=== PATIENT | male | born 1945 | race African-American/Black ===

== ENCOUNTER 2022-04-18 12:22 | Emergency (ER) | payer MEDICARE, BC ==
[2022-04-18 13:34] LABS: #Basophils 0.1 10x3/uL (0.0-0.2); #Eosinphils 0.1 10x3/uL (0.0-0.5); #Monocytes 1.8 10x3/uL (0.0-1.1); #Neutrophils 10.7 10x3/uL (1.5-8.4); %Basophils 0.3 % (0.0-2.0); %Eosinophils 0.8 % (0.0-6.0); %Lymphocytes 22.5 % (18.0-47.0); %Monocytes 10.2 % (0.0-10.0); %Neutrophils 62.4 % (40.0-75.0); Hemoglobin 10.8 g/dL (13.5-17.5); Mean Corpuscular HGB CONC 33.3 g/dL (32.0-36.0); Mean Corpuscular Hemoglobin 28.6 pg (27.0-33.0); Mean Corpuscular Volume 85.7 fl (81.2-95.1); Mean Platelet Volume 8.9 fl (7.4-10.4); Platelet Count 303 10x3/uL (150-450); Red Blood Cell (RBC) Count 3.78 10x6/uL (4.32-5.72); White Blood Cell (WBC) Count 17.2 10x3/uL (3.5-10.5)
[2022-04-18 13:48] LABS: ALT (SGPT) 24 U/L (8-55); AST (SGOT) 26 U/L (5-34); Albumin 3.4 g/dL (3.4-4.8); Alkaline Phosphatase 93 U/L (40-110); Anion Gap 13 mmol/L (10-20); BUN (Urea Nitrogen) 14 mg/dL (8.4-25.7); Bilirubin, Total 0.5 mg/dL (0.2-1.2); Calc. Creatinine Clearance 0 mL/min (70-130); Calcium 9.3 mg/dL (7.8-10.44); Carbon Dioxide 21 mmol/L (23-31); Chloride 108 mmol/L (98-107); Estimated GFR 64; Glucose 111 mg/dL (83-110); Potassium 3.7 mmol/L (3.5-5.1); Protein, Total 7.4 g/dL (5.8-8.1); Sodium 138 mmol/L (136-145)
== END 2022-04-18 14:29 | disposition home or self-care (01) ==
LOC: CSHERS 12:22
DX: J18.9 Pneumonia, unspecified organism (principal); I10 Essential (primary) hypertension
CPT/HCPCS: 71045; 80053; 84484; 85025; 93005

== ENCOUNTER 2023-11-15 10:37 | Outpatient (CLI) | payer MEDICARE, BC | END 2023-11-15 10:38 | disposition home or self-care (01) | LOC: CSHMRI 10:37 | PROVIDERS: ATTEND Internal Medicine | DX: R22.31 Localized swelling, mass and lump, right upper limb (principal); M62.89 Other specified disorders of muscle ==

== ENCOUNTER 2023-12-03 15:21 | Outpatient (CLI) | payer MEDICARE, BC ==
[~2023-12-03 15:21] MED LIST: Iopamidol 300 61% 100 ML VIAL FS ONE
== END 2023-12-03 15:22 | disposition home or self-care (01) ==
LOC: CSHCT 15:21
PROVIDERS: ATTEND Internal Medicine
DX: C49.9 Malignant neoplasm of connective and soft tissue, unspecified (principal); C90.00 Multiple myeloma not having achieved remission; N28.89 Other specified disorders of kidney and ureter; J90 Pleural effusion, not elsewhere classified; J98.11 Atelectasis; I31.39 Other pericardial effusion (noninflammatory); I51.7 Cardiomegaly; I70.90 Unspecified atherosclerosis
CPT/HCPCS: 71260; 74177

== ENCOUNTER 2023-12-11 09:21 | Outpatient (CLI) | payer MEDICARE, BC ==
[2023-12-11] MEDS ORDERED: Iopamidol 300 61% 100 ML VIAL FS ONE (09:50)
== END 2023-12-11 09:22 | disposition home or self-care (01) ==
LOC: CSHCT 09:21
PROVIDERS: ATTEND Internal Medicine
DX: D49.512 Neoplasm of unspecified behavior of left kidney (principal); K57.32 Diverticulitis of large intestine without perforation or abscess without bleeding; I31.39 Other pericardial effusion (noninflammatory); J90 Pleural effusion, not elsewhere classified
CPT/HCPCS: 74178

== ENCOUNTER 2024-01-26 11:08 | Inpatient (IN) | payer MEDICARE, BC ==
[2024-01-26 12:21] LABS: #Eosinophils 0.12 10x3/uL (0.0-0.5); #Monocytes 0.21 10x3/uL (0.0-1.1); #Neutrophils 2.38 10x3/uL (1.5-8.4); %Eosinophils 2.6 % (0.0-6.0); %Lymphocytes 41.7 % (18.0-47.0); %Monocytes 4.5 % (0.0-10.0); %Neutrophils 50.8 % (40.0-75.0); Mean Corpuscular HGB CONC 33.3 g/dL (32.0-36.0); Mean Corpuscular Hemoglobin 31.6 pg (27.0-33.0); Mean Corpuscular Volume 94.9 fL (81.2-95.1); Mean Platelet Volume 9.3 fL (7.4-10.4); Platelet Count 145 10x3/uL (150-450); RBC Distribution Width 17.1 % (11.5-14.5); Red Blood Cell (RBC) Count 2.53 10x6/uL (4.32-5.72); White Blood Cell (WBC) Count 4.7 10x3/uL (3.5-10.5)
[2024-01-26 12:32] LABS: ALT (SGPT) 12 U/L (8-55); AST (SGOT) 12 U/L (5-34); Albumin 2.2 g/dL (3.4-4.8); Alkaline Phosphatase 75 U/L (40-110); Anion Gap 10 mmol/L (10-20); BUN (Urea Nitrogen) 18 mg/dL (8.4-25.7); Bilirubin, Total 0.4 mg/dL (0.2-1.2); Calc. Creatinine Clearance 0 mL/min (70-130); Calcium 8.7 mg/dL (7.8-10.44); Carbon Dioxide 21 mmol/L (23-31); Chloride 110 mmol/L (98-107); Estimated GFR 46; Globulin 5.7 g/dL (2.4-3.5); Glucose 124 mg/dL (83-110); Magnesium 1.4 mg/dL (1.6-2.6); Potassium 2.7 mmol/L (3.5-5.1); Protein, Total 7.9 g/dL (5.8-8.1); Sodium 138 mmol/L (136-145)
[2024-01-26 12:58] LABS: Lipase Less than 4 U/L (8-78)
[2024-01-26] MEDS ORDERED: Electrolyte Replacement Protocol 1 EACH FS PRN (14:25)
[2024-01-26] MEDS ORDERED: Ondansetron PF 4 MG/2 ML Vial IVP PRN (14:27)
[2024-01-26] MEDS ORDERED: Acetaminophen 325 MG TAB PO PRN (14:27)
[2024-01-26] MEDS ORDERED: Potassium Chloride 20 MEQ TAB ONE (15:13)
[2024-01-26] MEDS ORDERED: Potassium Chloride 20 MEQ (100 mL) BAG ONE ×2 (16:04→16:15)
[2024-01-26] MEDS ORDERED: Ketorolac Tromethamine 30 MG (1 mL) VIAL IVP PRN (17:06)
[2024-01-26] MEDS: Potassium Chloride 40 MEQ in Sodium Chloride 0.9% 250 ML 250 ML IVPB SCH (17:07)
[2024-01-26] MEDS: Magnesium 2 GM/50 ML(in water) 2 GM in Premix 1 BAG IVPB SCH (17:11)
[2024-01-26 17:48] VITALS: BMI 40.3
[2024-01-26] MEDS ORDERED: Carvedilol 25 MG TAB PO SCH (21:00)
[2024-01-26] MEDS: Sodium Chloride 0.9% 1,000 ML IV SCH (21:29)
[2024-01-26] MEDS: fentaNYL 25 mcg Patch TD SCH (21:29)
[2024-01-26] MEDS: Famotidine 20 MG TAB PO SCH (21:31)
[2024-01-26] MEDS: Heparin 5,000 UNITS/ML VIAL SC SCH (21:32)
[2024-01-26] MEDS: Amlodipine 10 MG TAB PO SCH (21:36)
[2024-01-26] MEDS: hydrALAZINE 25 MG TAB PO SCH (21:36)
[2024-01-27 04:14] LABS: #Basophils 0.01 10x3/uL (0.0-0.2); #Eosinophils 0.13 10x3/uL (0.0-0.5); #Monocytes 0.25 10x3/uL (0.0-1.1); #Neutrophils 1.83 10x3/uL (1.5-8.4); %Basophils 0.2 % (0.0-2.0); %Eosinophils 3.2 % (0.0-6.0); %Lymphocytes 45.1 % (18.0-47.0); %Monocytes 6.2 % (0.0-10.0); %Neutrophils 45.1 % (40.0-75.0); Hematocrit 21.1 % (38.8-50.0); Hemoglobin 7.1 g/dL (13.5-17.5); Mean Corpuscular HGB CONC 33.6 g/dL (32.0-36.0); Mean Corpuscular Hemoglobin 32.3 pg (27.0-33.0); Mean Corpuscular Volume 95.9 fL (81.2-95.1); Mean Platelet Volume 9.5 fL (7.4-10.4); Platelet Count 124 10x3/uL (150-450); RBC Distribution Width 17.3 % (11.5-14.5); White Blood Cell (WBC) Count 4.1 10x3/uL (3.5-10.5)
[2024-01-27 04:27] LABS: Anion Gap 8 mmol/L (10-20); BUN (Urea Nitrogen) 16 mg/dL (8.4-25.7); Calc. Creatinine Clearance 85 mL/min (70-130); Calcium 8.4 mg/dL (7.8-10.44); Carbon Dioxide 21 mmol/L (23-31); Chloride 112 mmol/L (98-107); Estimated GFR 62; Glucose 83 mg/dL (83-110); Magnesium 2.2 mg/dL (1.6-2.6); Potassium 2.9 mmol/L (3.5-5.1); Sodium 138 mmol/L (136-145)
[2024-01-27] MEDS: Potassium Chloride 40 MEQ in Sodium Chloride 0.9% 250 ML 250 ML IVPB SCH ×2 (06:11→10:22)
[2024-01-27] MEDS: Ascorbic Acid 500 mg Chewable Tablet PO SCH (08:44)
[2024-01-27] MEDS: Ferrous Sulfate 325 MG TAB PO SCH (08:45)
[2024-01-27] MEDS: Multivitamin w/Zinc Stress 1 TAB PO SCH (08:45)
[2024-01-27] MEDS: Losartan 50 MG TAB PO SCH (08:45)
[2024-01-27] MEDS ORDERED: THALIDOMIDE 50 MG PO SCH (09:00)
[2024-01-27] MEDS ORDERED: Amlodipine 10 MG TAB PO SCH (09:00)
[2024-01-27] MEDS: Potassium Chloride 20 MEQ in Lactated Ringer's 1,000 ML IV SCH (13:32)
[2024-01-27] MEDS: Atorvastatin Calcium 10 MG TAB PO SCH (20:22)
[2024-01-27] MEDS: Famotidine 20 MG TAB PO SCH (20:23)
[2024-01-27] MEDS: HYDROcodone/Acetaminophen 10/325 mg Tablet PO PRN (21:17)
[2024-01-28 03:51] LABS: #Basophils 0.02 10x3/uL (0.0-0.2); #Monocytes 0.23 10x3/uL (0.0-1.1); #Neutrophils 1.87 10x3/uL (1.5-8.4); %Basophils 0.5 % (0.0-2.0); %Eosinophils 2.3 % (0.0-6.0); %Lymphocytes 48.1 % (18.0-47.0); %Monocytes 5.3 % (0.0-10.0); %Neutrophils 43.6 % (40.0-75.0); Hematocrit 21.9 % (38.8-50.0); Hemoglobin 7.5 g/dL (13.5-17.5); Mean Corpuscular HGB CONC 34.2 g/dL (32.0-36.0); Mean Corpuscular Hemoglobin 31.8 pg (27.0-33.0); Mean Corpuscular Volume 92.8 fL (81.2-95.1); Mean Platelet Volume 8.9 fL (7.4-10.4); Platelet Count 128 10x3/uL (150-450); Red Blood Cell (RBC) Count 2.36 10x6/uL (4.32-5.72); White Blood Cell (WBC) Count 4.3 10x3/uL (3.5-10.5)
[2024-01-28 04:00] LABS: Anion Gap 7 mmol/L (10-20); BUN (Urea Nitrogen) 12 mg/dL (8.4-25.7); Calc. Creatinine Clearance 106 mL/min (70-130); Calcium 7.9 mg/dL (7.8-10.44); Carbon Dioxide 20 mmol/L (23-31); Chloride 114 mmol/L (98-107); Estimated GFR 81; Glucose 81 mg/dL (83-110); Potassium 3.2 mmol/L (3.5-5.1); Sodium 138 mmol/L (136-145)
[2024-01-28] MEDS: Potassium Chloride 20 MEQ TAB PO SCH ×2 (06:16→08:03)
[2024-01-28] MEDS: Famotidine 20 MG TAB PO SCH (08:03)
[2024-01-28] MEDS: Carvedilol 6.25 MG TAB PO SCH (08:05)
[2024-01-28] MEDS: Enoxaparin 40 MG (0.4 mL) SYRINGE SC SCH (08:57)
[2024-01-28] MEDS: Loperamide HCl 2 MG CAP PO PRN (12:06)
[2024-01-28 12:26] LABS: Potassium 3.7 mmol/L (3.5-5.1)
[2024-01-28] MEDS: hydrALAZINE 20 MG/ML VIAL SLOW IVP PRN (16:41)
[2024-01-29 04:13] LABS: #Basophils 0.01 10x3/uL (0.0-0.2); #Eosinophils 0.12 10x3/uL (0.0-0.5); #Monocytes 0.26 10x3/uL (0.0-1.1); #Neutrophils 2.11 10x3/uL (1.5-8.4); %Basophils 0.2 % (0.0-2.0); %Eosinophils 2.7 % (0.0-6.0); %Lymphocytes 44.3 % (18.0-47.0); %Monocytes 5.8 % (0.0-10.0); %Neutrophils 46.8 % (40.0-75.0); Hematocrit 22.2 % (38.8-50.0); Hemoglobin 7.5 g/dL (13.5-17.5); Mean Corpuscular HGB CONC 33.8 g/dL (32.0-36.0); Mean Corpuscular Hemoglobin 31.5 pg (27.0-33.0); Mean Corpuscular Volume 93.3 fL (81.2-95.1); Mean Platelet Volume 8.9 fL (7.4-10.4); Platelet Count 129 10x3/uL (150-450); RBC Distribution Width 17.9 % (11.5-14.5); Red Blood Cell (RBC) Count 2.38 10x6/uL (4.32-5.72); White Blood Cell (WBC) Count 4.8 10x3/uL (3.5-10.5)
[2024-01-29 04:22] LABS: Anion Gap 8 mmol/L (10-20); BUN (Urea Nitrogen) 10 mg/dL (8.4-25.7); Calc. Creatinine Clearance 111 mL/min (70-130); Carbon Dioxide 19 mmol/L (23-31); Chloride 115 mmol/L (98-107); Estimated GFR 85; Glucose 80 mg/dL (83-110); Magnesium 1.4 mg/dL (1.6-2.6); Potassium 3.3 mmol/L (3.5-5.1); Sodium 139 mmol/L (136-145)
[2024-01-29] MEDS: hydrALAZINE 25 MG TAB PO SCH (08:00)
[2024-01-29] MEDS: Magnesium 2 GM/50 ML(in water) 2 GM in Premix 1 BAG IVPB SCH ×2 (08:07→11:41)
[2024-01-29] MEDS: Magnesium 2 GM/50 ML BAG (IN WATER) ONE ×2 (09:14→12:01)
[2024-01-29] MEDS: Potassium Chloride 20 MEQ TAB PO SCH ×2 (09:16→10:48)
[2024-01-29] MEDS ORDERED: niCARdipine 25 MG in Sodium Chloride 0.9% 250 ML 250 ML IVPB SCH ×2 (10:45→11:45)
[2024-01-29 17:56] VITALS: BP 147/67; TEMP 97.8
[2024-01-31 07:10] LABS: Adenovirus F 40-41 Not Detected (Not Detected); Astrovirus Not Detected (Not Detected); C. difficile toxin A+B Not Detected (Not Detected); Campylobacter by PCR Not Detected (Not Detected); Cryptosporidium Not Detected (Not Detected); Cyclospora cayetanensis Not Detected (Not Detected); Entamoeba histolytica Not Detected (Not Detected); Enteroaggregative E. coli Not Detected (Not Detected); Enteropathogenic E. coli Not Detected (Not Detected); Enterotoxigenic E. coli Not Detected (Not Detected); Giardia lamblia Not Detected (Not Detected); Norovirus GI-GII Not Detected (Not Detected); Plesiomonas shigelloides Not Detected (Not Detected); Rotavirus A Not Detected (Not Detected); Salmonella Not Detected (Not Detected); Sapovirus Not Detected (Not Detected); Shiga-toxin-producing E coli Not Detected (Not Detected); Shigella/Enteroinvasive E coli Not Detected (Not Detected); Vibrio Not Detected (Not Detected); Vibrio cholerae Not Detected (Not Detected); Yersinia enterocolitica Not Detected (Not Detected)
== END 2024-01-29 18:38 | disposition short-term general hospital (02) | DRG 683 ==
LOC: CSHERS 11:08 → CSHTELE 14:32
PROVIDERS: ADMIT Internal Medicine; ATTEND Internal Medicine
DX: N17.9 Acute kidney failure, unspecified (principal); C40.01 Malignant neoplasm of scapula and long bones of right upper limb; C90.00 Multiple myeloma not having achieved remission; R19.7 Diarrhea, unspecified; I10 Essential (primary) hypertension; E78.5 Hyperlipidemia, unspecified; D63.8 Anemia in other chronic diseases classified elsewhere; E87.6 Hypokalemia; Z92.3 Personal history of irradiation; Z88.0 Allergy status to penicillin; I16.0 Hypertensive urgency; Z90.49 Acquired absence of other specified parts of digestive tract; Z79.899 Other long term (current) drug therapy; Z79.52 Long term (current) use of systemic steroids; Z79.01 Long term (current) use of anticoagulants
CPT/HCPCS: 36415; 36430; 80048; 80053; 83605; 83690; 83735; 83880; 84132; 85025; 86850; 86900; 86901; 87324; 87449; 87507; 93005; 96374; J0360; J1644; J3475; J3480; J7030; J7050; J7120; P9016

== ENCOUNTER 2024-03-26 09:21 | Outpatient (CLI) | payer MEDICARE, BC ==
[2024-03-26] MEDS ORDERED: Iopamidol 300 61% 100 ML VIAL FS ONE (10:37)
== END 2024-03-26 09:22 | disposition home or self-care (01) ==
LOC: CSHCT 09:21
PROVIDERS: ATTEND Internal Medicine
DX: C49.9 Malignant neoplasm of connective and soft tissue, unspecified (principal); C90.00 Multiple myeloma not having achieved remission; R59.0 Localized enlarged lymph nodes; J90 Pleural effusion, not elsewhere classified; J98.11 Atelectasis; I51.7 Cardiomegaly; I31.39 Other pericardial effusion (noninflammatory); N28.89 Other specified disorders of kidney and ureter; M48.9 Spondylopathy, unspecified
CPT/HCPCS: 36415; 71260; 74177; 82565

== ENCOUNTER 2024-03-28 10:32 | Emergency (ER) | payer MEDICARE, BC ==
[2024-03-28 11:44] LABS: #Basophils Less than 0.03 10x3/uL (0.0-0.2); #Eosinophils 0.09 10x3/uL (0.0-0.5); #Monocytes 0.14 10x3/uL (0.0-1.1); #Neutrophils 2.55 10x3/uL (1.5-8.4); %Lymphocytes 38.1 % (18.0-47.0); %Monocytes 3.1 % (0.0-10.0); %Neutrophils 56.4 % (40.0-75.0); Hematocrit 19.8 % (38.8-50.0); Hemoglobin 6.6 g/dL (13.5-17.5); Mean Corpuscular HGB CONC 33.3 g/dL (32.0-36.0); Mean Platelet Volume 8.9 fL (7.4-10.4); Platelet Count 136 10x3/uL (150-450); RBC Distribution Width 19.3 % (11.5-14.5); Red Blood Cell (RBC) Count 2.13 10x6/uL (4.32-5.72); White Blood Cell (WBC) Count 4.52 10x3/uL (3.5-10.5)
[2024-03-28 11:53] LABS: ALT (SGPT) Less than 7 U/L (Less than 45); AST (SGOT) 18 U/L (11-34); Albumin 2.1 g/dL (3.1-4.5); Alkaline Phosphatase 79 U/L (40-110); Anion Gap 9 mmol/L (10-20); BUN (Urea Nitrogen) 13 mg/dL (8.4-25.7); Bilirubin, Total 0.5 mg/dL (0.3-1.2); Calc. Creatinine Clearance 0 mL/min (70-130); Calcium 8.2 mg/dL (7.8-10.44); Carbon Dioxide 21 mmol/L (23-31); Chloride 108 mmol/L (98-107); Estimated GFR 62; Globulin 7.1 g/dL (2.4-3.5); Glucose 119 mg/dL (83-110); Potassium 3.3 mmol/L (3.5-5.1); Protein, Total 9.2 g/dL (5.8-8.1); Sodium 135 mmol/L (136-145)
== END 2024-03-28 15:45 | disposition home or self-care (01) ==
LOC: CSHERS 10:32
DX: D64.9 Anemia, unspecified (principal); I10 Essential (primary) hypertension; Z85.79 Personal history of other malignant neoplasms of lymphoid, hematopoietic and related tissues
CPT/HCPCS: 36430; 80053; 85025; 86850; 86900; 86901; 86920; 99284; P9016